=== PATIENT | female | born 2000 ===

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

== ENCOUNTER 2018-04-19 21:08 | Emergency (ER) | payer OTHER ==
[2018-04-19 21:08] VITALS: BMI 22.2
--- NOTE | 2018-04-19 22:09 | ED PDOC ---
HPI: Skin/Bite Injury Time Seen by Provider: 04/19/18 21:31 Chief Complaint (Nursing): Abnormal Skin Integrity Chief Complaint (Provider): rash History Per: Patient History/Exam Limitations: no limitations Additional Complaint(s): 17 y/o F with no significant PMH who presents with rash x 2 days. Pt states that she began developing a rash that began on her right upper arm and then paula to the opposite arm and face. She states that her entire jaw and cheeks had the rash and she was swollen and then it went away on its own. Denies fever, chills, night sweats. She has not taken any medications or used anything to alleviate her symptoms Denies new medications, food, lotions, soap, detergent or environmental exposures. She has had some scratchiness in her throat but denies any throat or tongue swelling. Past Medical History Reviewed: Historical Data, Nursing Documentation, Vital Signs Vital Signs: Last Vital Signs Temp 98.2 F 04/19/18 21:15 Pulse 90 04/19/18 21:15 Resp 16 04/19/18 21:15 BP 121/83 04/19/18 21:15 Pulse Ox 99 04/19/18 21:15 - Medical History PMH: No Chronic Diseases - Family History Family History: States: Unknown Family Hx - Home Medications Home Medications: Ambulatory Orders Medication Instructions Recorded Sulfamethoxazole/Trimethoprim 1 tab PO BID #14 tab 09/08/15 [Bactrim DS 800 mg-160 mg] DiphenhydrAMINE [Benadryl] 25 mg PO Q6 PRN 7 Days cap 04/19/18 Famotidine [Pepcid] 20 mg PO BID 5 Days tab 04/19/18 - Allergies Allergies/Adverse Reactions: Allergies Allergy/AdvReac Type Severity Reaction Status Date / Time No Known Allergies Allergy Verified 09/08/15 16:28 Review of Systems Constitutional: Negative for: Fever, Chills ENT: Positive for: Nose Congestion. Negative for: Ear Pain Respiratory: Positive for: Shortness of Breath. Negative for: Cough Gastrointestinal: Positive for: Nausea, Vomiting Skin: Positive for: Rash Physical Exam - Reviewed Nursing Documentation Reviewed: Yes Vital Signs Reviewed: Yes - Physical Exam Appears: Positive for: Well Head Exam: Positive for: ATRAUMATIC Skin: Positive for: Rash (mildly erythematous wheal on Right chin, left upper arm, left abdomen) Eye Exam: Positive for: Normal appearance ENT: Positive for: Normal ENT Inspection, Other (no pharyngeal swelling). Negative for: Pharyngeal Erythema Cardiovascular/Chest: Positive for: Regular Rate, Rhythm, Murmur (III/ SULLY heard best at LSB) Respiratory: Positive for: Normal Breath Sounds Neurological/Psych: Positive for: Awake, Alert, Oriented - ECG O2 Sat by Pulse Oximetry: 99 Medical Decision Making Medical Decision Making: Benadryl 25mg PO x 1 Pepcid 20mg PO x 1 Re-evaluation 23:10: re-evaluated, pt states itching and rash have resolved. Pt stable for d/c home with return instructions given. Disposition - Clinical Impression Clinical Impression: Urticaria - Patient ED Disposition Is Patient to be Admitted: No - Disposition Referrals: [facility] [Outside] Disposition: Routine/Home Disposition Time: 23:29 Condition: STABLE Additional Instructions: Return to ER if you develop shortness of breath, throat or tongue swelling. Take Benadryl as needed for allergy symptoms. Avoid taking if you will be driving or operating heavy machinery. Take Pepcid for the next 5 days. Follow up with your primary care doctor as you will likely need to see an [facility] mobile or dermato logist. Prescriptions: DiphenhydrAMINE [Benadryl] 25 mg PO Q6 PRN 7 Days cap PRN Reason: Itching / Pruritus Famotidine [Pepcid] 20 mg PO BID 5 Days tab Instructions: Vaishnavi (DC) Forms: Kivun Hadash (Mohawk) Print Language: ICELANDIC
[2018-04-19 23:30] VITALS: BP 122/70; PULSE 78; RESP 18; TEMP 98
[2018-04-20 00:42] VITALS: O2SAT 99
== END 2018-04-19 23:28 | disposition home or self-care (01) ==
LOC: H.ER 21:08
DX: L50.9 Urticaria, unspecified (principal)